=== PATIENT | female | born 1995 | race Asian ===

== ENCOUNTER 2020-12-17 04:31 | Emergency (ER) | payer BC, OTHER ==
[~2020-12-17] VITALS: Ht 160 cm; Wt 67.9 kg
--- NOTE | 2020-12-17 05:09 | NUR ---
pt here for epigastric pain for about 3 hours, pt states pain is burning and she tried taking tums [employer] with no success. pt denies any medical history, placed on continuous pulse ox, awaiting erp eval
[2020-12-17] MEDS ORDERED: MAALOX/HYOSCYAMINE/LIDOCAINE 45 ML BTL ONE (05:27)
[2020-12-17] MEDS ORDERED: MAALOX/HYOSCYAMINE/LIDOCAINE 45 ML BTL PO ONE (05:30)
--- NOTE | 2020-12-17 05:44 | NUR ---
ULTRASOUND AT BEDSIDE
--- NOTE | 2020-12-17 05:53 | NUR ---
PT MEDIICATED PER EMAR, AMBULATED TO RESTROOM FOR URINE SAMPLE
[2020-12-17 06:03] VITALS: BP 114/70
[2020-12-17 06:11] LABS: ALBUMIN 3.6 g/dL (3.4-5.0); ANION GAP 3 mmol/L (5-15); CALCIUM 8.8 mg/dL (8.5-10.1); CHLORIDE 106 mmol/L (98-107)
[2020-12-17 06:13] LABS: HCG UR SG 1.026 (1.003-1.030); MICROSCOPIC AUTO
[2020-12-17 06:14] LABS: ALANINE AMINOTRANSFERASE 19 U/L (12-78); ALKALINE PHOSPHATASE 93 U/L (45-117); BASOPHILS % (AUTO) 1 % (0-1); BILIRUBIN,TOTAL 0.2 mg/dL (0.2-1.0); EOSINOPHILS % (AUTO) 4 % (1-7); LYMPHOCYTES % (AUTO) 16 % (22-44); MEAN CORPUSCULAR HEMOGLOBIN 30.4 pg (27.0-34.8); MEAN CORPUSCULAR HGB CONC 33.8 g/dL (32.4-35.8); MEAN PLATELET VOLUME 7.6 fL (7.4-10.4); MONOCYTES % (AUTO) 7 % (2-9); NEUTROPHILS % (AUTO) 72 % (42-75); PLATELET COUNT 336 x10^3/uL (130-400); RED BLOOD COUNT 4.62 x10^6/uL (3.82-5.3); RED CELL DISTRIBUTION WIDTH 12.6 % (9.6-15.2); TOTAL PROTEIN 7.1 g/dL (6.4-8.2)
[2020-12-17 06:16] LABS: MD NO
--- NOTE | 2020-12-17 06:20 | NUR ---
pt stated instant relief after gi cocktail admin
== END 2020-12-17 06:56 | disposition home or self-care (01) ==
LOC: ED 06:30
DX: R10.13 Epigastric pain (principal); N28.9 Disorder of kidney and ureter, unspecified
CPT/HCPCS: 36415; 76700; 80053; 81001; 81025; 83690; 85025; 87086; 99284